=== PATIENT | male | born 1990 | race Caucasian/White ===

== ENCOUNTER 2019-03-14 22:57 | Emergency (ER) | payer OTHER ==
[2019-03-14] MEDS ORDERED: Lidocaine 1% 30 ML SDV INJECT ONE (23:15)
[2019-03-14] MEDS ORDERED: Diphtheria,Pertussis(Acell),Tetanus Vaccine 0.5 ML Syringe IM ONE (23:16)
[2019-03-14] MEDS ORDERED: Take Home: Acetaminophen/HYDROcodone 325-5 MG, 5 Tab Pack PO ONE (23:53)
[2019-03-14] MEDS ORDERED: Take Home: Cephalexin 500 MG Cap, 4 Cap Pack PO ONE (23:53)
--- NOTE | 2019-03-15 00:29 | EDM.PDOC ---
ED HPI GENERAL MEDICAL PROBLEM - General Chief Complaint: Laceration Stated Complaint: laceration base of right thumb Time Seen by Provider: 03/14/19 23:07 Source of Information: Reports: Patient History Limitations: Reports: No Limitations - History of Present Illness INITIAL COMMENTS - FREE TEXT/NARRATIVE: Pt. states that he sustained a laceration to the base of his R thumb on a glass picture frame just prior to coming to the ER. Pt. states that his tetanus is likely not UTD. He states that he has numbness to the distal portion of the extremity and is unable to flex or extend the finger. Denies any injury elsewhere. 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 Denies any previous injury to the area in the past. He states that he is a smoker. Onset: Today Location: Reports: Upper Extremity, Right Quality: Reports: Sharp Severity: Severe Improves with: Reports: Rest Worsens with: Reports: Movement Right Finger-Thumb Pain Score (Numeric/FACES): 6 - Related Data Allergies Allergy/AdvReac Type Severity Reaction Status Date / Time No Known Allergies Allergy Verified 03/14/19 23:06 Home Meds: Home Meds . [No Known Home Meds] 06/30/16 [History] Past Medical History - Past Health History Medical/Surgical History: Denies Medical/Surgical History - Past Surgical History Musculoskeletal Surgical History: Reports: Knee Replacement, Other (See Below) Other Musculoskeletal Surgeries/Procedures:: right knee replacement Social & Family History - Tobacco Use Smoking Status *Q: Current Every Day Smoker Years of Tobacco use: 6 Packs/Tins Daily: 0.5 ED ROS GENERAL - Review of Systems Review Of Systems: ROS reveals no pertinent complaints other than HPI. ED EXAM, SKIN/RASH Exam: See Below Exam Limited By: No Limitations General Appearance: Alert, WD/WN, Moderate Distress Extremities: Limited Range of Motion, Other (Approx. 2 cm crescent shaped laceration over the dorsum of MCP R thumb. Bleeding is very brisk. Unable to fully visualize all the underlying structures at this time. Passive ROM of the joint, particularly extension, is minimal.) ED SKIN PROCEDURES - Laceration/Wound Repair Right Dorsal Digit - 1st (Thumb) Lac/Wound length In cm: 2 Appearance: Muscle, Clean Distal NVT: Other (questionable extensor tendon injury based on limited ROM) Anesthetic Type: Local Local Anesthesia - Lidocaine (Xylocaine): 1% Plain Local Anesthetic Volume: 2cc Skin Prep: Chlorhexidine (Hibiciens), Saline Exploration/Debridement/Repair: Wound Explored, Other (rapidly bleeding ) Closed with: Sutures Suture Size: 4-0 # of Sutures: 3 Suture Type: Nylon Course - Vital Signs Last Recorded V/S: Last Vital Signs Temp 35.7 C 03/14/19 23:07 Pulse 75 03/14/19 23:07 Resp 16 03/14/19 23:07 BP 120/90 03/14/19 23:07 Pulse Ox 94 L 03/14/19 23:07 - Orders/Labs/Meds Orders: Active Orders 24 hr Category Date Time Status Vaccines to be Administered [RC] PER UNIT ROUTINE Care 03/14/19 23:16 Active Meds: Medications Discontinued Medications Generic Name Dose Route Start Last Admin Trade Name Kathy PRN Reason Stop Dose Admin Hydrocodone Bitart/Acetaminophen 1 packet 03/14/19 23:53 03/15/19 00:07 Take Home: Acetam/Hydrocodon 325-5 Mg, 5 Pack PO 03/14/19 23:54 1 packet ONETIME ONE Administration Cephalexin 1 packet 03/14/19 23:53 03/15/19 00:07 Take Home: Cephalexin 500 Mg, 4 Cap Pack PO 03/14/19 23:54 1 packet ONETIME ONE Administration Diphtheria/Tetanus/Acell Pertussis 0.5 ml 03/14/19 23:16 03/14/19 23:21 Adacel IM 03/14/19 23:17 0.5 ml .ONCE ONE Administration Lidocaine HCl 30 ml 03/14/19 23:15 03/14/19 23:20 Xylocaine-Mpf 1% INJECT 03/14/19 23:16 30 ml ONETIME ONE Administration Departure - Departure Time of Disposition: 00:31 Disposition: Home, Self-Care 01 Condition: Good Clinical Impression: Laceration - Discharge Information Instructions: Laceration Care, Adult Referrals: PCP,None [Primary Care Provider] - Forms: ED Department Discharge Additional Instructions: Keep dry and covered until Tuesday Dr. Gaytan (hand surgery) staff will contact you tomorrow regarding appointment at 8 AM on Tuesday. Do not eat anything on Tuesday morning prior to the appointment in the event they need to take you to surgery Keflex 500mg 4 times daily for 10 days [place] 5/325mg 1 tab every 4-6 hours as needed for pain - Problem List Review Problem List Initiated/Reviewed/Updated: Yes - My Orders Last 24 Hours: My Active Orders 03/14/19 23:16 Vaccines to be Administered [RC] PER UNIT ROUTINE - Assessment/Plan Last 24 Hours: My Active Orders 03/14/19 23:16 Vaccines to be Administered [RC] PER UNIT ROUTINE Plan: Injury concerning for possible extensor tendon injury due to limited ROM of the extremity. I spoke with Dr. Gaytan, hand surgeon at [facility] in [place]. He advised irrigation, skin closure, and follow-up in clinic on Tuesday for evaluation and possible exploration and repair of extensor tendon injury. Tetanus was updated. Pt. was started on Keflex 500mg 4 times daily for 10 days. He was started on a short course of [place] 5/325mg every 4-6 hours as needed for pain. Pt. was advised to keep dressing in place until seen in clinic. Obviously, keep the area clean an dry. Was given a note for work thru the weekend as needed. Was advised to abstain from smoking if possible. He should follow-up sooner if he has any increased discomfort, redness, streaking, or discharge from the area.
== END 2019-03-15 00:20 | disposition home or self-care (01) ==
LOC: VM.ED 22:57
DX: S61.011A Laceration without foreign body of right thumb without damage to nail, initial encounter (principal); F17.210 Nicotine dependence, cigarettes, uncomplicated; Z23 Encounter for immunization; W25.XXXA Contact with sharp glass, initial encounter
CPT/HCPCS: 12001; 90471; 90715; 99283; A9270; J2001

== ENCOUNTER 2024-04-25 12:49 | Emergency (ER) | payer OTHER | END 2024-04-25 13:16 | disposition home or self-care (01) | LOC: VM.ED 12:49 | DX: S60.352A Superficial foreign body of left thumb, initial encounter (principal); W45.8XXA Other foreign body or object entering through skin, initial encounter | CPT/HCPCS: 10120; 99283; 99283-25 ==